=== PATIENT | female | born 1930 | race Caucasian/White ===

== ENCOUNTER 2016-08-21 14:53 | Emergency (ER) | payer MEDICARE, OTHER ==
--- NOTE | ~2016-08-21 | ER ---
PATIENT'S NAME: FABRICE LEÓN [facility] AGE: 85 Y [address] ROOM: [place] [address] LOCATION: [facility] ADMIT DATE: 08/21/2016 ER/Outpatient Report DISCHARGE DATE: 08/21/2016 FAMILY PHYSICIAN: Janice Shore MD ATTENDING PHYSICIAN: Kristen Rogers Time of Arrival: 1453 hours. Time of Evaluation: 1457 hours. IDENTIFICATION: An 85-year-old female. CHIEF COMPLAINT: Fall. HISTORY OF PRESENT ILLNESS: The patient has previous right femur fracture, still has a little leg-length discrepancy. She lost her footing, tripped and fell landing on the left side of her head. She has an abrasion. No loss of consciousness. No neck pain. No numbness or tingling. No other problems or concerns. No nausea or vomiting. PAST MEDICAL HISTORY: ALLERGIES: PENICILLIN. CURRENT MEDICATIONS: 1. Alpha Lipoic Acid 200 mg daily. 2. Aspirin 81 mg daily. 3. Astaxanthin 4 mg daily. 4. B12 plus daily. 5. Beta-carotene daily. 6. Calcium plus vitamin D. 7. Celexa 20 mg daily. 8. Centrum Silver daily. 9. CoQ10 200 mg daily. 10. Debrox p.r.n. 11. Loratadine 10 mg daily. 12. Metformin 500 mg daily. 13. Mucinex b.i.d. 14. NicAzel 1 tablet b.i.d. 15. Ocuvite daily. 16. [place]-3 fish oil daily. 17. Osteo Bi-Flex daily. PATIENT'S NAME: FABRICE LÓEN [facility] AGE: 85 Y [address] ROOM: [place] [address] LOCATION: [facility] ADMIT DATE: 08/21/2016 ER/Outpatient Report DISCHARGE DATE: 08/21/2016 FAMILY PHYSICIAN: Jancie Shore MD ATTENDING PHYSICIAN: Kristen Rogers 18. Red yeast rice daily. 19. [place] Wort daily. 20. Vitamin D3 5000 international units daily. MEDICAL PROBLEMS: Diabetes mellitus type 2. PRIOR SURGERIES: Right femur ORIF. 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 Tobacco use, denies. Alcohol use, denies. Drug use, denies. REVIEW OF SYSTEMS: All systems reviewed and negative other than what is noted in the HPI. PHYSICAL EXAMINATION: VITAL SIGNS: Weight 82.4 kg, blood pressure 100/59, pulse 76, respirations 14, temperature 97.7, and saturations 95% on room air. GENERAL: An 85-year-old female, in no acute distress. HEENT: Head: Normocephalic. The patient has an abrasion/contusion left frontal scalp. Ears: TMs translucent both ears. Nose: Mucosa pink, no lesions. Mouth: No lesions. Pharynx benign. NECK: Supple. No lymphadenopathy. No malocclusion of her teeth. LUNGS: Clear to auscultation. HEART: Regular rate and rhythm. No murmur, rub, or gallop. ABDOMEN: Bowel sounds present. Soft, nondistended, nontender. SKIN: [place], warm, and dry. No lesions or rashes noted. NEURO: The patient is alert and oriented x4. Cranial nerves 2 through 12 grossly intact. Motor strength 5/5 throughout. Sensation is intact to light touch. The patient has no tenderness to palpation of her cervical spine, thoracic spine or lumbar spine. She does have a little bit of tenderness to her left hip. No palpable deformities and she does have full range of motion. LABORATORY DATA AND X-RAYS: Pelvis x-ray and left hip x-ray no acute findings. Pending Radiology over- read. Head CT without contrast, left frontal scalp hematoma otherwise negative per Dr. Stoll, radiologist. IMPRESSION: 1. Head injury with frontal scalp hematoma. 2. Left hip pain with no fracture. PLAN: PATIENT'S NAME: FABRICE LEÓN [facility] AGE: 85 Y [address] ROOM: [place], [place] [address] LOCATION: [facility] ADMIT DATE: 08/21/2016 ER/Outpatient Report DISCHARGE DATE: 08/21/2016 FAMILY PHYSICIAN: Janice Shore MD ATTENDING PHYSICIAN: Kristen Rogers Head injury precautions. Ice as needed. Activity as tolerated. Tylenol as needed. Follow up with Dr. Shore as needed. The patient understands and agrees, and all questions have been answered. MD DIONNE VALENZUELA/kristina /[id number] d: 08/22/16818 t: 08/29/16 192, OUTPATIENT REPORT
== END 2016-08-21 16:04 | disposition disaster alternative care site (69) ==
LOC: GACC 14:53
DX: S00.03XA Contusion of scalp, initial encounter (principal); M25.552 Pain in left hip; E11.9 Type 2 diabetes mellitus without complications; Z88.0 Allergy status to penicillin; Z79.82 Long term (current) use of aspirin; Z79.899 Other long term (current) drug therapy; Z98.890 Other specified postprocedural states; Z79.84 Long term (current) use of oral hypoglycemic drugs; W01.0XXA Fall on same level from slipping, tripping and stumbling without subsequent striking against object, initial encounter

== ENCOUNTER → 2016-08-21 | Outpatient (CLI) | payer MEDICARE, OTHER ==
[~2016-08-21] MED LIST: ALPHA LIPOIC ACID PO; ASPIRIN LO-DOSE81 MG PO; ASTAXANTHIN4 MG PO; BETA CAROT25000 UNIT PO; CALCIUM GLUC500 MG PO; CENTRUM SILVER1 TAB PO; COENZYME Q10100 MG PO; COENZYME Q1030 MG PO; GLUCOPHAGE500 MG PO; GLUCOSAMINE HC500 MG PO; LOVENOX 4040 MG/0.4 SUB-Q; LOVENOX40 MG/0.4 SUB-Q; LUMIGAN 0.01%2.5 ML OPHTH; NICOMIDE TABLE1 EAC1 PO; NORCO 5-325 MG1 TAB PO; OCUVITE LUTEIN1 EACH PO; OCUVITE SOFTGE1 EACH PO; OMEGA 3 FISH OIL PO; OSTEO BI-FLEX1 EAC1 PO; RED YEAST RICE600 MG PO; ST. JOHN'S WOR300 MG PO; VITAMIN B SL; [UNRECOGNIZED DRUG - OTHER] SL
== END | disposition disaster alternative care site (69) ==
LOC: GAMB 14:42
DX: S09.90XA Unspecified injury of head, initial encounter (principal); S00.212A Abrasion of left eyelid and periocular area, initial encounter; M25.552 Pain in left hip; G89.11 Acute pain due to trauma; W01.0XXA Fall on same level from slipping, tripping and stumbling without subsequent striking against object, initial encounter
CPT/HCPCS: A0425; A0429

== ENCOUNTER 2016-08-25 07:22 | Emergency (ER) | payer MEDICARE, OTHER ==
--- NOTE | ~2016-08-25 | ER ---
PATIENT'S NAME: FABRICE LEÓN [facility] AGE: 85 Y [address] ROOM: [place] [address] LOCATION: [facility] ADMIT DATE: 08/25/2016 ER/Outpatient Report DISCHARGE DATE: 08/25/2016 FAMILY PHYSICIAN: Janice Shore MD ATTENDING PHYSICIAN: Bernabe Breaux CHIEF COMPLAINT: Chest pain. HISTORY OF PRESENT ILLNESS: The patient states that since 4:00 a.m. she has had persistent chest discomfort. The patient notes that since she fell on , she has had left-sided chest discomfort. It has been intermittent and sharp in nature. This morning, it is more of an achy sensation at the same location. It does not radiate anywhere. She denies any fevers or chills. She has not taken anything to make this better. She states that she has no history of hypertension or high cholesterol, but does have prediabetes. She is a never smoker and has no cardiac risk in her family. PAST MEDICAL HISTORY: Documented in the record and reviewed by me. SOCIAL HISTORY: Documented in the record and reviewed by me. MEDICATIONS: Documented in the record and reviewed by me. ALLERGIES: DOCUMENTED IN THE RECORD AND REVIEWED BY ME. REVIEW OF SYSTEMS: All systems were reviewed and negative except as noted in the HPI. PHYSICAL EXAMINATION: VITAL SIGNS: Blood pressure 113/65, pulse 74, respiratory rate 16, temperature 98.2, and SpO2 is 98% on room air. GENERAL: Age appropriate female, in no obvious pain or distress. Resting comfortably on the exam table. HEENT: Normocephalic, grossly atraumatic. There is an old age-appropriate ecchymosis over the left face. Extraocular movements are intact. She is otherwise without abnormality. Teeth are normal. Oropharynx is clear and moist. NECK: Supple. Trachea is midline. CHEST: Heart is regular rate and rhythm with no murmurs. PATIENT'S NAME: FABRICE LEÓN [facility] AGE: 85 Y [address] ROOM: [place] [address] LOCATION: [facility] ADMIT DATE: 08/25/2016 ER/Outpatient Report DISCHARGE DATE: 08/25/2016 FAMILY PHYSICIAN: Janice Shore MD ATTENDING PHYSICIAN: Bernabe Breaux LUNGS: Clear to auscultation bilaterally in all lung pitts. The chest wall is notable for focal tenderness over the left 4th costochondral junction. This exactly reproduces her pain. It is exquisite to palpation. ABDOMEN: Soft, nontender, and nondistended. BACK: Normal to inspection on palpation. EXTREMITIES: Warm and well perfused. No obvious abnormalities. SKIN: Clean, dry, and intact with no rashes. LABORATORY DATA AND IMAGING STUDIES: Labs and X-rays: Chest x-ray is unremarkable per my review. 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 No significant other abnormalities on EKG. Labs: CMS without any appreciable electrolyte or hepatobiliary or renal abnormalities. Magnesium 2.4, CK-MB and troponin are both within appropriate range. CBC with elevated white count of 12.6, otherwise, grossly unremarkable. IMPRESSION: Atypical chest pain secondary to prior fall with costochondritis. EMERGENCY DEPARTMENT COURSE: The patient was seen and evaluated. She was given aspirin and reassurance. She had marked improvement in her discomfort in fact it completely resolved. She declined Tylenol. I discussed that she should use anti-inflammatories for this chest wall pain. I do not think it is cardiac in nature at this time. She needs to follow up with her primary care provider as needed. MD OMI RAHMAN/kristina /[id number] d: 08/25/161911 t: 08/27/16 1002, OUTPATIENT REPORT
[2016-08-25 07:46] LABS: BASOPHIL % 0.3 %; EOSINOPHIL # 0.2 K/uL (0.0-0.5); EOSINOPHIL % 1.7 %; HEMATOCRIT 43.4 % (30.0-46.0); HEMOGLOBIN 14.7 g/dL (10.0-15.0); IMMATURE GRANULOCYTE # 0.1 K/uL (0.0-0.3); IMMATURE GRANULOCYTE % 0.4 %; LYMPHOCYTE # 1.9 K/uL (0.8-4.0); LYMPHOCYTE % 14.7 %; MCH 31.8 pg (27.0-34.0); MCHC 33.9 gm/dL (32.0-36.5); MCV 93.9 fl (83.0-98.0); MONOCYTE # 0.9 K/uL (0.0-1.0); MONOCYTE % 7.3 %; MPV 8.9 fl (9.4-12.4); NEUTROPHIL # (ANC) 9.5 K/uL (1.8-7.8); NEUTROPHIL % 75.6 %; NRBC % 0 /100WBC (0-0.00); PLATELET COUNT 257 K/uL (150-450); RBC 4.62 M/uL (3.00-5.00); WBC 12.6 K/uL (4.0-11.0)
[2016-08-25 07:57] LABS: INR - (THERAPEUTIC) 0.93 (0.92-1.07); PROTIME 9.8 SECONDS (9.8-11.4); PTT 29 SECONDS (25-32)
[2016-08-25 08:04] LABS: ALBUMIN 3.7 gm/dL (3.5-5.0); ALK PHOS 54 IU/L (33-138); ALT 20 IU/L (12-78); ANION GAP 13.1 (10.0-19.0); AST 19 IU/L (10-40); BLOOD UREA NITROGEN 16 mg/dL (6-24); CALCIUM 8.7 mg/dL (8.5-10.5); CHLORIDE 104 mMol/L (96-110); CO2 24 mMol/L (22-32); CPK 70 IU/L (21-215); CREATININE 0.8 mg/dL (0.5-1.1); ESTIMATED GFR (MDRD EQUATION) > 60; MAGNESIUM 2.4 mg/dL (1.8-2.6); POTASSIUM 4.1 mMol/L (3.7-5.1); SODIUM 137 mMol/L (135-145); TOTAL BILIRUBIN 0.8 mg/dL (0.0-1.5); TOTAL PROTEIN 7.1 g/dL (6.0-8.4)
[2016-08-25 09:55] LABS: CPK 57 IU/L (21-215)
== END 2016-08-25 10:14 | disposition disaster alternative care site (69) ==
LOC: GMED 07:22
PROVIDERS: Emergency Medicine
DX: R07.89 Other chest pain (principal); E11.9 Type 2 diabetes mellitus without complications; Z88.0 Allergy status to penicillin; Z79.899 Other long term (current) drug therapy; Z79.82 Long term (current) use of aspirin; Z79.84 Long term (current) use of oral hypoglycemic drugs

== ENCOUNTER → 2016-12-10 | Outpatient (CLI) | payer MEDICARE | LOC: GKIC 13:32 → GRAD 14:00 → GKIC 14:00 → GRAD 12-15 11:00 | DX: R42 Dizziness and giddiness (principal); R27.0 Ataxia, unspecified ==